=== PATIENT | female | born 1975 | race Caucasian/White ===

== ENCOUNTER 2022-03-07 15:48 | Emergency (ER) | payer BC, SELFPAY ==
[2022-03-07 15:58] VITALS: BP 144/101; PULSE 91; RESP 16; TEMP 37.6; O2SAT 100
--- NOTE | 2022-03-07 16:08 | ED.URI ---
HPI - URI/Sore Throat General Chief Complaint: Upper Respiratory Infection Stated Complaint: cough Time Seen by Provider: 03/07/22 16:08 Source: patient and RN notes reviewed Mode of arrival: ambulatory Limitations: no limitations History of Present Illness HPI Narrative: 46-year-old female presented for complaint of cough and wheezing for 6 days. She is taken to negative COVID test at home. Denies associated sinus congestion, headache, dizziness, nausea, vomiting, diarrhea, fevers or chills. She has taken [id number] medications without relief. Patient is a smoker 1 pack/day. She is not boosted for COVID. Denies sick contacts. MD elicited complaint: cough Related Data Allergies Allergy/AdvReac Type Severity Reaction Status Date / Time No Known Allergies Allergy Verified 03/07/22 15:57 Review of Systems Review of Systems: CONSTITUTIONAL:Deneis malaise, chills, sweats, fever EYES: Denies visual changes, redness, or discharge ENT: denies rhinorrhea, congestion, sinus pain, otalgia, sore throat CARDIOVASCULAR: Denies chest pain, palpitations, edema RESPIRATORY: Reports cough, Denies dyspnea GASTROINTESTINAL: Denies abdominal pain, nausea, vomiting, diarrhea SKIN: Denies rash or itching MUSCULOSKELETAL: Denies myalgia NEUROLOGIC: Denies headache Exam Narrative: GENERAL: Ill-appearing, nontoxic EYES: conjunctivae clear ENT: Mucous membranes moist. TMs pearly lara with normal light reflex bilaterally; no tragal tenderness. CHEST: lungs diminished with faint wheezing scattered throughout [place]. No respiratory distress. HEART: Regular rate and rhythm. No murmur heard. SKIN: Warm, dry, no rash. NEURO: Alert and oriented x3. Course Course Emergency Course: Patient is aware of diagnosis, understands and agrees to treatment plan. Anticipatory guidance given. Patient agrees to follow-up as directed and is aware of reasons to seek care at the emergency department. Portions of this record may have been created with voice recognition software Level of Care: Express Care Visit Vital Signs Vital signs: Vital Signs Temperature 99.7 F H 03/07/22 15:58 Pulse Rate 91 03/07/22 15:58 Respiratory Rate 16 03/07/22 15:58 Blood Pressure 144/101 H 03/07/22 15:58 Pulse Oximetry 100 03/07/22 15:58 Temperature 99.7 F H 03/07/22 15:58 Pulse Rate 91 03/07/22 15:58 Respiratory Rate 16 03/07/22 15:58 Blood Pressure 144/101 H 03/07/22 15:58 Pulse Oximetry 100 03/07/22 15:58 reviewed MDM - URI/Sore Throat MDM Narrative Medical decision making narrative: Advised supportive measures and signs/symptoms to go to the ER. Deferred additional PCR or covid testing given her sx present 6 days. Pt is appropriate for outpt treatment and f/u. Differential Diagnosis Differential diagnosis: Likely upper respiratory infection, sinusitis, viral infection and bronchitis Discharge Plan Discharge Clinical Impression: Bronchitis Patient Disposition: Home, Self-Care Condition: Stable Instructions: Acute Bronchitis (ED) Additional Instructions: Acute bronchitis can be contagious because it is usually caused by infection with a virus or bacteria. It is usually for a few days but you can be contagious for up to one week. Avoid crowds until you do not have a fever and symptoms are improved Take medication as directed: Steroid pack, albuterol inhaler for shortness of breath/wheezing, benzonatate as needed for cough Recommend Flonase spray and Zyrtec (or Claritin/[place]) if you have sinus congestion over the counter Cough syrup may cause drowsiness; avoid driving or take it at night time. Tylenol 1000mg every 8 hours as needed for pain Symptomatic treatment includes: rest, fluids, avoid smoking Follow up with your primary care provider as needed in 1 week Go to the ER for worsening symptoms or concerns Prescriptions: New benzonatate 200 mg capsule 200 mg PO TID PRN (Reason: cough) Qty: 20 0RF
== END 2022-03-07 16:38 | disposition home or self-care (01) ==
PROVIDERS: Emergency Provider Nurse Practitioner Family; PCP Internal Medicine
DX: J40 Bronchitis, not specified as acute or chronic (principal)
CPT/HCPCS: 99213; G0463